=== PATIENT | male | born 1960 | race Caucasian/White ===

== ENCOUNTER 2023-07-20 06:20 | Day surgery (SDC) | payer BC, OTHER ==
[2023-07-12 13:44] LABS: PT Prothrombin Time 20.6 SECONDS (9.5-12.5); PTT, Activated Partial Thromb 45.1 SECONDS (24.3-36.9); Protime INR 1.91
--- NOTE | 2023-07-12 13:46 | RAD REPORT ---
EXAM DESCRIPTION: Sinan Gotti (2 Views)07/12/2023 1:16 pm CLINICAL HISTORY: Preop for hernia repair COMPARISON: 2010 FINDINGS: The lungs appear clear of acute infiltrate. The heart is normal size IMPRESSION: No acute abnormalities displayed
[2023-07-12 13:55] LABS: Absolute Basophils 0.1 K/uL (0-0.5); Absolute Eosinophils 0.2 K/uL (0-0.5); Absolute Lymphocytes (CBC) 2.5 K/uL (0.7-4.9); Absolute Monocytes 0.6 K/uL (0.1-1.3); Absolute Neutrophil 3.9 K/uL (1.8-8.0); Eosinophils % 2.9 % (0-4.4); Hematocrit 44.8 % (39.6-49.0); Hemoglobin 15.7 g/dL (13.6-17.9); Lymphocytes % 34.4 % (15.3-44.8); MCH 31.1 pg (27.0-35.0); MCHC 35.1 g/dL (32.0-36.0); MCV 88.7 fL (80-100); MPV 9.5 fL (7.6-11.3); Monocytes % 8.6 % (3.3-12.3); Neutrophils % 53.1 % (41.7-73.7); Nucleated Red Blood Cells % 0.1 % (0-0); Platelets 278 thou/uL (152-406); RBC Red Blood Cell Count 5.06 M/uL (4.33-5.43); Red Cell Distribution Width 13.5 % (12.1-15.2)
--- NOTE | 2023-07-13 14:16 | EKG ---
Test Date: 2023-07-12 Test Time: 14:01:58 Rn International: [place] MEASUREMENT RESULTS: Intervals: Rate: 89 WV: QRSD: 86 QT: 366 QTc: 445 Cha[place]y: P: W[place]: QRS: 25 T: 55 INTERPRETIVE STATEMENTS: Atrial fibrillation Septal infarct, age undetermined Abnormal ECG Compared to ECG 10/22/2010 11:48:41 Myocardial infarct finding now present Sinus rhythm no longer present Electronically Signed On 07-13-23 14:13:05 [employer] by Jose Angel Wang
[2023-07-20] MEDS: Ringers Lactate 1,000 ML IV ONE (06:50)
[2023-07-20] MEDS ORDERED: SUCCINYLCHOLINE 20 MG/ML (10 ML) IV ONE (07:09)
[2023-07-20] MEDS ORDERED: SUGAMMADEX SODIUM 200 MG/2 ML VIAL IV ONE (07:09)
[2023-07-20] MEDS ORDERED: LIDOCAINE 2% MPF 5 ML VIAL ONE (07:10)
[2023-07-20] MEDS ORDERED: MIDAZOLAM HCL 2 MG/2 ML INJ ONE (07:10)
[2023-07-20] MEDS ORDERED: ONDANSETRON 4 MG/2 ML VIAL ONE (07:10)
[2023-07-20] MEDS ORDERED: ROCURONIUM 50 MG/5 ML VIAL IV ONE (07:10)
[2023-07-20] MEDS ORDERED: propofoL 200 MG/20 ML VIAL IV ONE (07:10)
[2023-07-20] MEDS ORDERED: FENTANYL CITR 100 MCG/2 ML ONE ×2 (07:10→08:25)
[2023-07-20] MEDS: CEFAZOLIN SODIUM 2 GM/VIAL ONE (07:44)
[2023-07-20] MEDS ORDERED: dexAMETHasone 10 MG/ML VIAL ONE (07:44)
[2023-07-20] MEDS ORDERED: KETOROLAC 30 MG/ML INJ ONE (08:31)
--- NOTE | 2023-07-20 09:01 | P.OP ---
Date of Service: 07/20/23 Preop diagnosis: Umbilical hernia Postop diagnosis: Same Procedure performed: Lap assisted repair of umbilical hernia Surgeon: Jimmy Garcia MD Fire Prevention Forester: None Estimated blood loss: Minimal Specimen: Hernia sac and contents Findings: As above Anesthesia: General Complications: None Drains: None Fluids and blood products: Nonapplicable Disposition: Recovery room Operative note: Patient brought to the OR and placed in the supine position. General anesthesia began. Patient prepped and draped in the usual sterile fashion. Marcaine 0.5% infiltrated locally. 15 blade used to make a 1 cm incision in the left upper quadrant. Subcutaneous tissue divided. Fascia identified and divided. #1 Vicryl stay suture placed. Peritoneal cavity entered with sharp and blunt dissection. 12 mm trocar placed into the peritoneal cavity under direct vision. Pneumoperitoneum established. 5 mm trocar placed under direct vision in the left lower quadrant. Laparoscopy revealed approximately a 3 cm umbilical hernia. A 3 cm midline incision made at the umbilicus. Subcutaneous tissue divided and bleeding controlled cautery. Hernia sac and contents identified and freed from surrounding tissues. Hernia sac excised at the fascial edges. Specimen sent to pathology. #1 PDS used to close the fascial defect. Bard oval balloon system inserted in the standard fashion into the peritoneal cavity. The mesh deployed in the standard fashion. The mesh secured with Sorber tack stapling device. Complete coverage of the hernia defect accomplished with 3 cm borders. There was no evidence of bleeding or bowel injury appreciated. Subsequently, all trocars removed under direct vision. Stay sutures tied to each other to reapproximate the fascial defect. Subcutaneous wounds irrigated and bleeding controlled cautery. 3-0 chromic used to approximate subcutaneous tissue and close skin. Sterile dressing applied. Patient awakened and taken to recovery room in good general condition. CC: Dr. White's office
[2023-07-20] MEDS ORDERED: HYDROCODONE/APAP 7.5/325 MG TAB PO PRN (09:03)
[2023-07-20] MEDS: FENTANYL CITR 100 MCG/2 ML ONE (09:27)
[2023-07-20 09:43] VITALS: TEMP 97
[2023-07-20 12:39] VITALS: BP 126/78; O2SAT 95
== END 2023-07-20 10:50 | disposition home or self-care (01) ==
LOC: OR 06:20
PROVIDERS: ATTEND Surgery
PROC: 0WUF4JZ Supplement Abdominal Wall with Synthetic Substitute, Percutaneous Endoscopic Approach (ICD-10-PCS; principal; 2023-07-20 07:30)
DX: K42.9 Umbilical hernia without obstruction or gangrene (principal)
CPT/HCPCS: 36415; 71046; 80048; 85025; 85610; 85730; 88302; 93005; J1100; J2001; J2250; J2405; J2704; J3010; J7120